=== PATIENT | male | born 1990 | race Caucasian/White ===

== ENCOUNTER 2018-10-29 11:06 | Emergency (ER) | payer OTHER ==
[~2018-10-29] VITALS: Ht 182.9 cm; Wt 104.3 kg
== END 2018-10-29 13:04 | disposition home or self-care (01) ==
LOC: ER 11:06
DX: B02.9 Zoster without complications (principal)

== ENCOUNTER 2019-12-08 15:21 | Emergency (ER) | payer OTHER ==
[~2019-12-08] VITALS: Ht 182.9 cm; Wt 112.0 kg
[2019-12-08] MEDS ORDERED: CIPRO500 MG PO (18:22)
[2019-12-08] MEDS ORDERED: LEVSIN/SL0.125 MG SL (18:22)
[2019-12-08] MEDS ORDERED: PEPCID AC20 MG PO (18:22)
== END 2019-12-08 19:58 | disposition home or self-care (01) ==
LOC: ER 15:21
DX: K65.4 Sclerosing mesenteritis (principal); R10.12 Left upper quadrant pain; Z03.818 Encounter for observation for suspected exposure to other biological agents ruled out

== ENCOUNTER 2019-12-13 13:07 | Inpatient (IN) | payer OTHER ==
[~2019-12-13] VITALS: Ht 182.9 cm; Wt 109.8 kg
[~2019-12-13 13:07] MED LIST: CIPRO500 MG PO; LEVSIN/SL0.125 MG SL; PEPCID AC20 MG PO
== END 2019-12-19 12:58 | disposition left against medical advice (07) | DRG 394 ==
LOC: ER 13:07 → MEDJ 19:25
PROVIDERS: ADMIT Internal Medicine; ATTEND Internal Medicine
PROC: BW24ZZZ Computerized Tomography (CT Scan) of Chest and Abdomen (ICD-10-PCS; principal; 2019-12-13)
PROC: 4A033R1 Measurement of Arterial Saturation, Peripheral, Percutaneous Approach (ICD-10-PCS; 2019-12-13)
PROC: BW21ZZZ Computerized Tomography (CT Scan) of Abdomen and Pelvis (ICD-10-PCS; 2019-12-14)
PROC: B246ZZZ Ultrasonography of Right and Left Heart (ICD-10-PCS; 2019-12-15)
DX: K65.4 Sclerosing mesenteritis (principal); R65.10 Systemic inflammatory response syndrome (SIRS) of non-infectious origin without acute organ dysfunction; B02.8 Zoster with other complications; N39.0 Urinary tract infection, site not specified; R74.8 Abnormal levels of other serum enzymes; R50.9 Fever, unspecified; Z20.828 Contact with and (suspected) exposure to other viral communicable diseases